=== PATIENT | female | born 1985 | race Asian ===

== ENCOUNTER 2023-12-28 17:12 | Emergency (ER) | payer OTHER ==
[~2023-12-28] VITALS: Ht 170.2 cm; Wt 70.0 kg
[2023-12-28 17:17] VITALS: O2SAT 100
[2023-12-28 18:41] LABS: BASOPHILS % 1.3 % (0.0-2.0); EOSINOPHILS % 4.8 % (0.0-5.0); HEMATOCRIT. 45.6 % (36.0-48.0); HEMOGLOBIN. 14.8 g/dL (12.0-16.0); LYMPHOCYTES % 27.5 % (20.0-50.0); MEAN CORPUSCULAR HEMOGLOBIN 28.7 pg (28.0-32.0); MEAN CORPUSCULAR HGB CONC 32.4 g/dL (31.0-37.0); MEAN CORPUSCULAR VOLUME 88.7 fL (81.0-99.0); MEAN PLATELET VOLUME 7.5 fl (7.4-10.4); MONOCYTES % 9.4 % (2.0-8.0); PLATELET 297 x1000/uL (130-400); RED BLOOD CELL COUNT 5.14 mill/uL (4.2-5.4); RED CELL DISTRIBUTION WIDTH 13.7 % (11.6-14.6); WHITE BLOOD COUNT 5.5 x1000/uL (4.5-11.0)
[2023-12-28 18:42] LABS: CHLORIDE 104 mEq/L (98-107); POTASSIUM 3.9 mEq/L (3.5-5.1); SODIUM 137 mEq/L (136-145)
[2023-12-28 18:43] LABS: CARBON DIOXIDE 25 mEq/L (21-32)
[2023-12-28 18:44] LABS: CALCIUM 10.1 mg/dL (8.7-10.4)
[2023-12-28 18:48] LABS: CREATININE 0.6 mg/dL (0.6-1.0); GLUCOSE 99 mg/dL (70-105); UREA NITROGEN BLOOD 10 mg/dL (9-23)
[2023-12-28 18:49] LABS: TROPONIN I HIGH SENSITIVITY 5 ng/L (3.0-34)
[2023-12-28] MEDS: LACTATED RINGERS 1,000 ML IV SCH (18:49)
[2023-12-28 18:57] LABS: HCG SCREEN NEGATIVE
[2023-12-28 20:53] LABS: TROPONIN I HIGH SENSITIVITY < 4 ng/L (3.0-34)
[2023-12-28 21:00] VITALS: BP 130/86; PULSE 90; RESP 17; TEMP 36.78072; O2SAT 99
== END 2023-12-28 21:17 | disposition home or self-care (01) ==
LOC: ER 17:12
DX: R06.02 Shortness of breath (principal); E11.9 Type 2 diabetes mellitus without complications; Z98.890 Other specified postprocedural states
CPT/HCPCS: 36415; 71045; 80048; 84484; 84703; 85025; 93005; 96360; 99285